=== PATIENT | female | born 1995 | race African-American/Black ===

== ENCOUNTER 2016-09-28 02:16 | Emergency (ER) | payer MEDICAID, OTHER ==
[~2016-09-28] VITALS: Ht 165.1 cm; Wt 59.0 kg
--- NOTE | 2016-09-28 02:55 | NUR ---
To bed 8 a 21 yo female bibself with c/o LLQ abdominal pain/pelvic area that radiates to back at 4/10, patient also reports having n/v for 2 days, and wants to know if she is . Patient is aaox4, ambulatory. Afebrile. VSS. Gowned. Initiated comfort measures. Awaiting for er md mix.
--- NOTE | 2016-09-28 03:35 | NUR ---
Started a saline lock on the right [id number], blood drawn and sent to lab.
[2016-09-28 03:46] LABS: BASOPHILS % (AUTO) 0.5 % (0.0-2.0); EOSINOPHILS # (AUTO) 0.3 /CMM (0.0-0.7); HEMATOCRIT 43 % (33-45); HEMOGLOBIN 14.6 g/dL (11.5-14.8); LYMPHOCYTES # (AUTO) 1.3 /CMM (0.8-4.8); LYMPHOCYTES % (AUTO) 18.5 % (20.0-44.0); MEAN CORPUSCULAR HEMOGLOBIN 31 PG (26.0-33.0); MEAN CORPUSCULAR HGB CONC 34 g/dl (31.0-36.0); MEAN CORPUSCULAR VOLUME 91 fL (82-100); MONOCYTES # (AUTO) 0.5 /CMM (0.1-1.30); MONOCYTES % (AUTO) 6.6 % (2.0-12.0); NEUTROPHILS % (AUTO) 70.4 % (43.0-81.0); PLATELET COUNT (AUTO) 354 /CMM (150-450); RDW COEFFICIENT OF VARIATION 13.6 (11.5-15.0); RED BLOOD CELL COUNT(AUTO) 4.75 MIL/uL (4.0-5.2); WHITE BLOOD COUNT (AUTO) 7.2 K/uL (4.3-11.0)
[2016-09-28 03:47] LABS: APPEARANCE,URINE SL CLOUDY (CLEAR); BILIRUBIN,URINE NEGATIVE (NEGATIVE); BLOOD, URINE NEGATIVE Ery/uL (NEGATIVE); COLOR,URINE YELLOW (YELLOW); KETONES,URINE 1+ (NEGATIVE); LEUKOCYTE ESTERASE ,URINE NEGATIVE (NEGATIVE); NITRITE, URINE NEGATIVE (NEGATIVE); PH,URINE 6.5 (5.0-8.0); PROTEIN,URINE NEGATIVE (NEGATIVE); UGLUCOSE NEGATIVE (NEGATIVE); UROBILINOGEN,URINE 0.2 EU/dL (0.2)
[2016-09-28 03:57] LABS: CALCIUM, SERUM 8.7 mg/dL (8.5-10.1); CREATININE 0.8 mg/dL (0.6-1.3); POTASSIUM 3.5 mmol/L (3.5-5.1)
[2016-09-28 03:59] LABS: ADD URINE CULTURE NO; BACTERIA,URINE None seen /HPF (None Seen); RBC,URINE 0-2 /HPF (0-2); SQUAMOUS EPITHELIAL CELL,UR Rare /HPF (None Seen); WBC,URINE 0-2 /HPF (0-3)
--- NOTE | 2016-09-28 03:59 | NUR ---
Dr Foley at bedside completed pelvic exam, speciment collected, sent to lab.
[2016-09-28] MEDS ORDERED: CEFTRIAXONE 500 MG VIAL ONE (04:00)
[2016-09-28] MEDS ORDERED: LIDOCAINE /MPF 1% VIAL 5 ML VIAL ONE (04:00)
[2016-09-28] MEDS ORDERED: CEFTRIAXONE 500 MG VIAL IM ONE (04:00)
[2016-09-28] MEDS ORDERED: AZITHROMYCIN 250 MG TABLET PO ONE (04:00)
[2016-09-28] MEDS ORDERED: AZITHROMYCIN 250 MG TABLET ONE (04:00)
[2016-09-28 04:03] LABS: INR 0.97 (0.87-1.13); PROTHROMBIN TIME 10.4 SECS (9.5-12.7)
--- NOTE | 2016-09-28 05:03 | NUR ---
FRIEDA AT BEDSIDE
[2016-09-28] MEDS ORDERED: ONDANSETRON HCL/PF 4 MG/2 ML VIAL ONE (05:09)
[2016-09-28] MEDS ORDERED: KETOROLAC TROMETHAMINE 15 MG/ML VIAL ONE (05:09)
--- NOTE | 2016-09-28 05:23 | NUR ---
toradol 15mg ivp given and zofran 4mg ivp given to rac g18 per Dr Foley's verbal order for pain and nausea.
--- NOTE | 2016-09-28 06:20 | NUR ---
IV removed. Catheter intact and site benign. Pressure and 4x4 applied to site. No bleeding noted. Patient discharged to home in stable condition. Written and verbal after care instructions given. Patient verbalizes understanding of instruction. Patient is ambulatory with steady gait.
[2016-09-28 06:23] VITALS: BP 159/60
== END 2016-09-28 06:24 | disposition home or self-care (01) ==
LOC: ER 02:16
DX: N73.9 Female pelvic inflammatory disease, unspecified (principal); G40.909 Epilepsy, unspecified, not intractable, without status epilepticus; F17.200 Nicotine dependence, unspecified, uncomplicated
CPT/HCPCS: 36415; 76856-TC; 80048-TC; 81000-TC; 84702-TC; 85025-TC; 85730-TC; A4606; J0696; J1885; J2405; J3490; Z7610